=== PATIENT | female | born 1965 | race Caucasian/White ===

== ENCOUNTER 2017-08-15 10:40 | Inpatient (IN) | payer OTHER ==
[~2017-08-15] VITALS: Ht 177.8 cm; Wt 91.0 kg
[2017-08-15] MEDS ORDERED: LACTATED RINGER'S 1000 ML IV PRN (11:15)
[2017-08-15] MEDS ORDERED: SODIUM CHLORID 0.9% 500 ML IV PRN (11:15)
[2017-08-15] MEDS ORDERED: INSULIN HUMAN REGULAR 1,000 UNITS/10 ML VIAL SQ PRN (11:15)
[2017-08-15] MEDS ORDERED: METOPROLOL TARTRATE 25 MG TAB PO PRN (11:15)
[2017-08-15] MEDS ORDERED: ACETAMINOPHEN 1000 MG/100 ML 100 ML IV SCH (11:30)
[2017-08-15] MEDS ORDERED: metroNIDAZOLE 500 MG INJ 100 ML IV SCH (11:30)
[2017-08-15] MEDS ORDERED: ceFAZolin 2 GM PREMIX 50 ML IV SCH (11:30)
[2017-08-15] MEDS ORDERED: ALVIMOPAN 12 MG CAPSULE - On Call PO SCH (11:30)
[2017-08-15] MEDS ORDERED: HYDROmorphone HCL PF 2 MG/ML VIAL ONE (12:30)
[2017-08-15] MEDS ORDERED: ACETAMINOPHEN 1000 MG/100 ML 0 ML IV ONE (12:31)
[2017-08-15] MEDS ORDERED: SUGAMMADEX SODIUM 200 MG/2 ML VIAL IV PUSH ONE ×2 (12:31)
[2017-08-15] MEDS ORDERED: BUPIVACAINE LIPOSOME PF 1.3% 20 ML VIAL ONE (12:55)
[2017-08-15] MEDS ORDERED: BUPIVACAINE/EPINEPHRINE 0.25% PF 30 ML VIAL ONE (13:18)
[2017-08-15] MEDS ORDERED: GLUCAGON 1 MG/ML VIAL ONE ×2 (16:19→16:20)
[2017-08-15] MEDS ORDERED: ceFAZolin INJ 1,000 MG VIAL IV ONE (17:00)
[2017-08-15] MEDS: LACTATED RINGER'S 1000 ML INJ 1,000 ML IV SCH (17:47)
[2017-08-15] MEDS ORDERED: ONDANSETRON HCL 4 MG/2 ML VIAL IV PUSH PRN (18:00)
[2017-08-15] MEDS ORDERED: NALOXONE HCL 0.4 MG/ML AMP IV PUSH PRN ×2 (18:00)
[2017-08-15] MEDS ORDERED: Post-op Orders (for Pharmacy) XX ONE (18:00)
[2017-08-15] MEDS ORDERED: SODIUM CHLORIDE 0.9% FLUSH 10 ML FLUSH IV FLUSH PRN (18:00)
[2017-08-15] MEDS ORDERED: diphenhydrAMINE HCL 50 MG/ML VIAL IV PUSH PRN (18:00)
[2017-08-15] MEDS: HYDROmorphone HCL PCA 6 MG/30 ML IV SCH (18:36)
[2017-08-15] MEDS ORDERED: ERYTHROMYCIN 0.5% OPTH OINT 1 GM TUBO ONE (19:29)
[2017-08-15] MEDS ORDERED: ERYTHROMYCIN 0.5% OPTH OINT 3.5 GM TUBO LEFT EYE ONE (20:15)
[2017-08-15] MEDS ORDERED: TETRACAINE 0.5% OPTH SOLN 4 ML BTL LEFT EYE ONE (20:15)
[2017-08-15] MEDS ORDERED: ERYTHROMYCIN 0.5% OPTH OINT 3.5 GM TUBO ONE (20:15)
[2017-08-15] MEDS ORDERED: BALANCED SALT SOLN OPHT IRRIG 15 ML BTL LEFT EYE ONE (20:15)
[2017-08-15] MEDS ORDERED: DO NOT ADM ANY ANTICOAGULANT DRUGS PRN (20:30)
[2017-08-15 20:43] VITALS: BP 144/92; PULSE 87; RESP 20; TEMP 97; O2SAT 99
[2017-08-15] MEDS: KETOROLAC TROMETHAMINE 30 MG/ML (IVP) VIAL IV PUSH SCH (20:52)
[2017-08-15] MEDS: SODIUM CHLORIDE 0.9% FLUSH 10 ML FLUSH IV FLUSH SCH (20:52)
[2017-08-15] MEDS: PANTOPRAZOLE SODIUM 40 MG VIAL IV PUSH SCH (20:52)
[2017-08-15] MEDS: PCA - TOTAL MG DILAUDID DELIVERED PER SHIFT OTHER SCH (21:14)
[2017-08-16 00:44] VITALS: BP 113/59; PULSE 86; RESP 20; TEMP 97.1; O2SAT 97
[2017-08-16] MEDS: LACTATED RINGER'S 1000 ML INJ 1,000 ML IV SCH ×3 (01:35→17:21)
[2017-08-16] MEDS: KETOROLAC TROMETHAMINE 30 MG/ML (IVP) VIAL IV PUSH SCH ×4 (01:35→21:01)
[2017-08-16 04:00] VITALS: BP 108/60; PULSE 81; RESP 20; TEMP 97.9; O2SAT 96
[2017-08-16] MEDS: PCA - TOTAL MG DILAUDID DELIVERED PER SHIFT OTHER SCH ×3 (05:10→21:01)
[2017-08-16 08:00] VITALS: BP 115/65; PULSE 91; RESP 20; TEMP 97.6; O2SAT 90
[2017-08-16] MEDS: SODIUM CHLORIDE 0.9% FLUSH 10 ML FLUSH IV FLUSH SCH ×2 (09:35→21:00)
[2017-08-16] MEDS: ALVIMOPAN 12 MG CAPSULE - Post-op dosing PO SCH ×2 (09:35→21:01)
[2017-08-16 12:20] VITALS: BP 116/73; PULSE 77; RESP 20; TEMP 98
[2017-08-16 16:00] VITALS: BP_SYST 108; BP_SYST 133; BP_DIAS 71; BP_DIAS 72; PULSE 64; PULSE 78; RESP 16; RESP 20; TEMP 97.4; TEMP 99.1; O2SAT 94; O2SAT 97
[2017-08-16] MEDS: ENOXAPARIN SODIUM 40 MG/0.4 ML SYRINGE SQ SCH (17:22)
--- NOTE | 2017-08-16 19:06 | HHI.PR ---
Subjective Subjective Notes pt c/o abd pain no flatus no N/V Objective Vitals/I&O Vital Signs Date Time Temp Pulse Resp B/P (MAP) Pulse Ox O2 Delivery O2 Flow Rate FiO2 08/16/17 16:00 99.1 78 20 133/71 (91) 94 08/15/17 19:45 Nasal Cannula 2 Abdomen: Post-op tenderness Extremities: Perfused Wound Wound : Wound Location: Abdomen Appearance: Clean & Dry A/P Assessment and Plan s/p lap sigmoid colectomy POD #1 normal post op changes cont clears ambulate in hallway IS while awake Andrea Garcia MD Aug 16, 2017 19:06
[2017-08-16 20:00] VITALS: BP 127/67; PULSE 75; RESP 18; TEMP 98; O2SAT 95
[2017-08-16] MEDS: PANTOPRAZOLE SODIUM 40 MG VIAL IV PUSH SCH (21:01)
[2017-08-17] VITALS: BP 119/72; PULSE 75; RESP 18; TEMP 96.9; O2SAT 95
[2017-08-17] MEDS: LACTATED RINGER'S 1000 ML INJ 1,000 ML IV SCH ×3 (01:25→19:56)
[2017-08-17] MEDS: KETOROLAC TROMETHAMINE 30 MG/ML (IVP) VIAL IV PUSH SCH ×4 (01:55→19:55)
[2017-08-17] MEDS: HYDROmorphone HCL PCA 6 MG/30 ML IV SCH (04:24)
[2017-08-17] MEDS: PCA - TOTAL MG DILAUDID DELIVERED PER SHIFT OTHER SCH (04:24)
[2017-08-17 07:50] VITALS: BP 146/82; PULSE 70; RESP 20; TEMP 97.7; O2SAT 99
[2017-08-17] MEDS: ALVIMOPAN 12 MG CAPSULE - Post-op dosing PO SCH ×2 (08:30→19:56)
[2017-08-17] MEDS: SODIUM CHLORIDE 0.9% FLUSH 10 ML FLUSH IV FLUSH SCH ×2 (08:30→19:56)
--- NOTE | 2017-08-17 09:39 | HHI.PR ---
Subjective Subjective Notes She is feeling well. Has been ambulating. + flatus, no nausea on clears. Objective Vitals/I&O Vital Signs Date Time Temp Pulse Resp B/P (MAP) Pulse Ox O2 Delivery O2 Flow Rate FiO2 08/17/17 04:24 18 08/17/17 00:00 96.9 75 119/72 (88) 95 08/15/17 19:45 Nasal Cannula 2 Narrative Exam NAD Comfortable in chair Abd: soft, inc c/d/i A/P Assessment and Plan 52 yo F POD 2 s/p robot assisted sigmoid colectomy. Doing well post op. 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 Luis. Derrek Acosta MD Aug 17, 2017 09:39
[2017-08-17] MEDS ORDERED: ACETAMINOPHEN/HYDROcodone 325 MG/5 MG TAB PO PRN (09:45)
[2017-08-17 11:50] VITALS: BP 147/78; PULSE 75; RESP 20; TEMP 98.6; O2SAT 98
[2017-08-17] MEDS: ACETAMINOPHEN/HYDROcodone 325 MG/5 MG TAB PO PRN ×2 (15:47→23:20)
[2017-08-17 15:50] VITALS: BP 132/79; PULSE 67; RESP 20; TEMP 98.2; O2SAT 98
[2017-08-17] MEDS: ENOXAPARIN SODIUM 40 MG/0.4 ML SYRINGE SQ SCH (17:08)
[2017-08-17] MEDS: PANTOPRAZOLE SODIUM 40 MG VIAL IV PUSH SCH (19:55)
[2017-08-17 20:00] VITALS: BP 152/89; PULSE 72; RESP 20; TEMP 97; O2SAT 98
[2017-08-18] VITALS: BP 156/85; PULSE 56; RESP 20; TEMP 97.4; O2SAT 97
[2017-08-18] MEDS: KETOROLAC TROMETHAMINE 30 MG/ML (IVP) VIAL IV PUSH SCH ×3 (02:23→16:56)
[2017-08-18 08:00] VITALS: BP 150/80; PULSE 68; RESP 20; TEMP 97.5; O2SAT 99
[2017-08-18] MEDS: SODIUM CHLORIDE 0.9% FLUSH 10 ML FLUSH IV FLUSH SCH (09:02)
[2017-08-18] MEDS: ALVIMOPAN 12 MG CAPSULE - Post-op dosing PO SCH (09:02)
[2017-08-18 12:00] VITALS: BP 171/86; PULSE 74; RESP 19; TEMP 97.4; O2SAT 100
[2017-08-18] MEDS: ACETAMINOPHEN/HYDROcodone 325 MG/5 MG TAB PO PRN ×2 (12:18→16:56)
[2017-08-18] MEDS ORDERED: HYDR-3516 PO (13:29)
[2017-08-18 15:19] LABS: AUTOMATED NEUTROPHIL # 4.7 TH/MM3 (1.8-7.7); BASOPHIL % 0.3 % (0.0-2.0); EOSINOPHIL # 0.1 TH/MM3 (0-0.4); EOSINOPHIL % 1.8 % (0.0-4.0); HEMO FLAGS DIFF FINAL; LYMPH % 25.4 % (9.0-44.0); LYMPHOCYTE # 1.8 TH/MM3 (1.0-4.8); MEAN CELL VOLUME 91.7 FL (80.0-100.0); MEAN CORPUSCULAR HGB CONC 32.7 % (32.0-36.0); NEUT % 64.5 % (16.0-70.0); PLATELET COUNT 240 TH/MM3 (150-450); RED BLOOD COUNT 3.81 MIL/MM3 (4.00-5.30); RED CELL DISTRIBUTION WIDTH 13.7 % (11.6-17.2); WHITE BLOOD COUNT 7.3 TH/MM3 (4.0-11.0)
[2017-08-18 16:00] VITALS: BP 173/94; PULSE 71; RESP 18; TEMP 97.5; O2SAT 98
--- NOTE | 2017-08-18 16:05 | HHI.DS ---
Discharge Summary Admission Date Aug 15, 2017 at 10:40 Discharge Date: Aug 18, 2017 Admitting Diagnosis Sigmoid adenocarcinoma Procedures Robot assisted laparoscopic sigmoid colectomy Brief History Mrs. Klein was admitted for elective sigmoid resection due to sigmoid cancer. CBC/BMP: 08/18/17 1406 Significant Findings Laboratory Tests Test 08/18/17 14:06 Red Blood Count 3.81 MIL/MM3 (4.00-5.30) Hemoglobin 11.4 GM/DL (11.6-15.3) PE at Discharge NAD Comfortable in chair Abd: soft, inc c/d/i, BLADIMIR ss output Hospital Course Mrs. Klein did very well post op. She tolerated liquids on POD 1 and began passing flatus. She was placed on soft diet and began passing flatus and by POD 3 has bowel movts. Pain initially controlled with morphine and then oral medications and toradol. Pt Condition on Discharge: Good Discharge Disposition: Discharge Home Discharge Instructions DIET: Follow Instructions for: As Tolerated, No Restrictions Activities you can perform: See Additionl Instruction Follow up Referrals: Surgical - 08/21/17 with Drew Castro MD New Medications: Hydrocodone/Acetaminophen (Hydrocodone-Acetamin 5-325 mg) 5 Mg-325 Mg Tablet 1-2 TAB PO Q4H PRN for PAIN, #25 TAB-CAP AdveDerrek MD Aug 18, 2017 16:05
[2017-08-18] MEDS: ENOXAPARIN SODIUM 40 MG/0.4 ML SYRINGE SQ SCH (16:56)
--- NOTE | 2017-08-20 06:29 | MP ---
cc: MARIEL JULIO MD DATE OF SURGERY 08/15/2017 PREOPERATIVE DIAGNOSIS Adenocarcinoma of the sigmoid colon. POSTOPERATIVE DIAGNOSIS Adenocarcinoma of the sigmoid colon. PROCEDURE Da Lauren robot-assisted laparoscopic sigmoid colectomy. SURGEON Mariel Julio MD SHIP PILOT MD Esthela Acosta, [facility] ANESTHESIA General endotracheal anesthesia. SPECIMEN Sigmoid colon including colon cancer. OPERATIVE FINDINGS The patient had an obvious mass present at the junction of the descending and sigmoid colon. The sigmoidectomy was performed from 5 cm mass in the rectosigmoid junction. PROCEDURE IN DETAIL The patient was taken to the operating room and placed in supine position. General endotracheal anesthesia was induced. The abdomen was prepped and draped in the usual sterile fashion with time-out to verify correct patient, procedure and site. Appropriate preoperative antibiotics were administered. Local anesthetic was injected in the skin and subcutaneous tissue to the right and superior to the umbilicus and a 12-mm incision made. A 5-mm OptiView trocar was inserted under laparoscopic visualization and the abdomen insufflated to 15 mmHg with CO2 gas and tolerated well. A 12-mm robotic port was placed in the right lower abdomen about two fingerbreadths from the ASIS. An 8-mm robotic port was placed in the far left lateral position and another in the left upper abdomen. A 5-mm therapist's assistant port was placed in the right mid-abdomen. The initial 5-mm port was then exchanged for a 12-mm port. The patient was placed in steep Trendelenburg position. The pelvis was visualized. There were adhesions of the uterus due to the previous incision. These adhesions were taken down sharply and with monopolar scissors. The uterus was somewhat elongated due to these adhesions. The small bowel was carefully placed in the right upper abdomen to the rectum and sigmoid colon. At this point the da Lauren robot was docked angled over the left hip. Fenestrated bipolar forceps were placed in arm #1 and electrocautery in arm #2. Small graspers were placed in arm #3. Dissection was initiated through the sigmoid mesentery to identify the left ureter. It was not immediately identified and then lateral dissection was performed and the ureter was identified along its course into the pelvic brim. The mesentery was divided with hook electrocautery proximally until the left colic arteries were identified. These were carefully partially divided with the vessel sealer. The vessel sealer was fired three times, once proximally, distally and in between on each of these vessels prior to division. Dissection continued in the mesentery until the IMV was identified and it was divided using the vessel sealer in the same fashion. Attention was turned to dissection of the rectosigmoid. A spot was chosen at the rectosigmoid junction and the mesorectum fully divided with the vessel sealer. The rectum had no adhesions. The rectosigmoid junction was then divided at this portion using the da Lauren stapler which required two fires. Lateral dissection was then performed along the sigmoid and descending colon. The colon cancer was easily identifiable at the junction of the descending and sigmoid colon. Mobilization was continued just to the splenic flexure. A site was chosen at least 5-cm proximal to the cancer and the mesentery divided with a vessel sealer up to the colon. The colon was grasped with the therapist's assistant grasper and placed into the pelvis where it reaching without tension at the site of planned division. At this point I scrubbed and the robot was disengaged. The right lower quadrant incision was extended and an Ricardo wound retractor placed. The right colon including the colon mass was brought up through the incision. It was divided with a pursestring suture device proximal to the colon cancer. The specimen was removed to the back table. Sizers were used to decide what staple size. The 29 sizer easily entered the descending colon and the 29 stapler was chosen. The anvil was placed into the descending colon and the pursestring suture was tied. Unfortunately, a portion of the colon pulled out from the pursestring. A hand-sewn pursestring was then placed with approximation of the mucosa to the anvil. The colon and the anvil were placed within the abdominal and green Ricardo cap was placed over the wound retractor which allowed placement of the robotic port through the cap. The [employer] robot was then used to direct the anvil for the EEA anastomosis. Dr. Garcia then performed rigid sigmoidoscopy. After the rigid sigmoidoscopy the EEA stapler was placed through the anus to the rectum. Just inferior to the staple line the stapler was opened and the rectum punctured. The anvil was placed onto the stapler and the staple was closed, clamped and fired. The stapler was removed from the rectum. There was no tension on the anastomosis. The rigid sigmoidoscope was again inserted into the rectum and the descending colon clamped with a small grasper. The rectum was then insufflated and the pelvis with saline. There were no air bubbles and no leaks identified at the anastomosis. The anastomosis was also visualized robotically and appeared intact. The sigmoidoscope was removed. The descending colon also had been visualized be sure there was correct orientation of the colon without twisting and this was appropriate. At this point the de Lauren robot was removed and trocars were removed. The fascia at the right lower quadrant incision was closed with #1 PDS suture. The fascia at the 12-mm port site was closed with 0 Vicryl. A drain had been placed through the left lateral 5-mm and placed into the pelvis. This was secured with 3-0 nylon suture. The skin was closed with subcuticular 4-0 Monocryl and Dermabond. The patient tolerated the procedure well, was extubated and taken to the PACU in stable condition. All sponge and instrument counts were correct. MD GOLD Winn/HOSSEIN /10:31 AM /5:59 AM
== END 2017-08-18 17:28 | disposition home or self-care (01) | DRG 331 ==
LOC: HSDI 10:40 → N07B 19:56
PROVIDERS: ADMIT Surgery; ATTEND Surgery
PROC: 8E0W4CZ Robotic Assisted Procedure of Trunk Region, Percutaneous Endoscopic Approach (ICD-10-PCS; 2017-08-15)
PROC: 0DTN4ZZ Resection of Sigmoid Colon, Percutaneous Endoscopic Approach (ICD-10-PCS; principal; 2017-08-15 12:37)
DX: C18.7 Malignant neoplasm of sigmoid colon (principal)
CPT/HCPCS: 85025; 88307; 88309; 94150; C9113; C9290; J0131; J0690; J1170; J1610; J1650; J1885; J7120